=== PATIENT | male | born 1960 | race Caucasian/White ===

== ENCOUNTER → 2023-10-17 12:53 | Outpatient (REF) | payer OTHER, SELFPAY | LOC: RAD 12:53 | PROVIDERS: ATTENDING PHYSICIAN Nurse Practitioner Family; FAMILY PHYSICIAN Family Medicine | DX: M47.26 Other spondylosis with radiculopathy, lumbar region (principal) | CPT/HCPCS: 72110 ==

== ENCOUNTER 2024-11-09 06:18 | Day surgery (SDC) | payer OTHER, SELFPAY ==
[2024-11-09 10:41] VITALS: BMI 39.4
[2024-11-09 10:46] VITALS: BMI 39.4
[2024-11-09 10:56] VITALS: BP 135/86
[2024-11-09 13:11] VITALS: BP 115/69
[2024-11-09 13:15] VITALS: BP 122/70
== END 2024-11-09 13:45 | disposition home or self-care (01) ==
LOC: SDS 06:18
PROVIDERS: ATTENDING PHYSICIAN Internal Medicine Gastroenterology
DX: Z12.11 Encounter for screening for malignant neoplasm of colon (principal); D12.4 Benign neoplasm of descending colon; K57.30 Diverticulosis of large intestine without perforation or abscess without bleeding; K62.1 Rectal polyp; K64.8 Other hemorrhoids; R12 Heartburn; Z86.0100 Personal history of colon polyps, unspecified; Z13.810 Encounter for screening for upper gastrointestinal disorder
CPT/HCPCS: 45385; 45380; 43239; 88305; 88342